=== PATIENT | female | born 1995 ===

== ENCOUNTER 2021-08-13 12:47 | Day surgery (SDC) | payer MEDICAID ==
[~2021-08-13 12:47] MED LIST: Clindamycin Phosphate in D5W 900 MG in Premix Bag 1 BAG IV ONE; Lactated Ringers 1,000 ML IV SCH
--- NOTE | 2021-08-13 13:10 | PCM.PREANE ---
Preanesthetic Assessment - Procedure Proposed Procedure: Dx Laproscopy poss salpingectomy for ectopic - Anesthesia/Transfusion/Family Hx Anesthesia History: No Prior Anesthesia Family History of Anesthesia Reaction: No Transfusion History: No Prior Transfusion(s) - Review of Systems General: No Symptoms Pulmonary: No Symptoms Cardiovascular: No Symptoms Gastrointestinal: No Symptoms Neurological: No Symptoms Other: Reports: None - Physical Assessment NPO Status Date: 08/13/21 NPO Status Time: 08:00 Height: 5 ft 2 in Weight: 52.617 kg ASA Class: 1E Mental Status: Alert & Oriented x3 Airway Class: Mallampati = 2 Dentition: Reports: Normal Dentition Thyro-Mental Finger Breadths: 3 Mouth Opening Finger Breadths: 3 ROM/Head Extension: Full Lungs: Clear to Auscultation, Normal Respiratory Effort Cardiovascular: Regular Rate, Regular Rhythm - Lab Values: Laboratory Last Values WBC 9.19 K/uL (4.0-11.0) 08/13/21 12:34 RBC 3.67 M/uL (4.30-5.90) L 08/13/21 12:34 Hgb 10.4 g/dL (12.0-16.0) L 08/13/21 12:34 Hct 30.9 % (36.0-46.0) L 08/13/21 12:34 MCV 84.2 fL (80.0-98.0) 08/13/21 12:34 MCH 28.3 pg (27.0-32.0) 08/13/21 12:34 MCHC 33.7 g/dL (31.0-37.0) 08/13/21 12:34 RDW Std Deviation 43.4 fl (28.0-62.0) 08/13/21 12:34 RDW Coeff of Arslan 14 % (11.0-15.0) 08/13/21 12:34 Plt Count 319 K/uL (150-400) 08/13/21 12:34 MPV 9.10 fL (7.40-12.00) 08/13/21 12:34 Nucleated RBC % 0.0 /100WBC 08/13/21 12:34 Nucleated RBCs # 0 K/uL 08/13/21 12:34 - Allergies Allergies/Adverse Reactions: Allergies Allergy/AdvReac Type Severity Reaction Status Date / Time ferumoxytol [From Feraheme] Allergy Difficulty Verified 08/13/21 12:08 Breathing Penicillins Allergy Rash Verified 08/13/21 12:08 - Acknowledgements Anesthesia Type Planned: General Anesthesia Pt an Appropriate Candidate for the Planned Anesthesia: Yes Alternatives and Risks of Anesthesia Discussed w Pt/Guardian: Yes Pt/Guardian Understands and Agrees with Anesthesia Plan: Yes PreAnesthesia Questionnaire HEENT History: Reports: None Cardiovascular History: Reports: None Respiratory History: Reports: None Gastrointestinal History: Reports: None Genitourinary History: Reports: None COOK 3 PASTRY History: Reports: Musculoskeletal History: Reports: None Neurological History: Reports: None Psychiatric History: Reports: None Endocrine/Metabolic History: Reports: None Hematologic History: Reports: None Immunologic History: Reports: None Oncologic (Cancer) History: Reports: None Dermatologic History: Reports: None - Infectious Disease History Infectious Disease History: Reports: None - Past Surgical History Head Surgeries/Procedures: Reports: None Female Surgical History: Reports: None - SUBSTANCE USE Tobacco Use Status *Q: Never Tobacco User Recreational Drug Use History: No - HOME MEDS Home Medications: Home Meds . [No Known Home Meds] 08/13/21 [History] - CURRENT (IN HOUSE) MEDS Current Meds: Current Medications Lactated Ringer's (Ringers, Lactated) 1,000 mls @ 100 mls/hr IV ASDIRECTED ZACH Discontinued Medications Clindamycin Phosphate 900 mg/ (Premix) 50 mls @ 100 mls/hr IV ONETIME ONE Stop: 08/13/21 12:18
[2021-08-13] MEDS ORDERED: Bupivacaine 0.25% 10 ML SDV ONE (13:48)
[2021-08-13] MEDS ORDERED: Octyl 2-Cyanoacrylate 1 Tube ONE (13:49)
[2021-08-13] MEDS ORDERED: Ondansetron 4 MG/2 ML SDV IVPUSH PRN (14:03)
[2021-08-13] MEDS ORDERED: Metoclopramide 10 MG/2 ML SDV IVPUSH PRN (14:03)
[2021-08-13] MEDS ORDERED: HYDROmorphone 1 MG/ML Syringe IVPUSH PRN (14:03)
[2021-08-13] MEDS ORDERED: fentaNYL 100 MCG/2 ML SDV IVPUSH PRN (14:03)
[2021-08-13] MEDS ORDERED: Albuterol 0.083% 2.5 MG/3 ML Neb Soln NEB PRN (14:03)
[2021-08-13] MEDS ORDERED: Naloxone 0.4 MG/ML SDV IVPUSH PRN (14:03)
[2021-08-13] MEDS ORDERED: Lidocaine 2% 5 ML SDV ONE (14:12)
[2021-08-13] MEDS ORDERED: Propofol 200 MG/20 ML SDV ONE (14:12)
[2021-08-13] MEDS ORDERED: Rocuronium Bromide 50 MG/5 ML Syringe ONE (14:13)
[2021-08-13] MEDS ORDERED: fentaNYL 250 MCG/5 ML SDV ONE (14:13)
[2021-08-13] MEDS ORDERED: Midazolam 1 MG/ML 2 ML SDV ONE (14:41)
[2021-08-13] MEDS ORDERED: Dexamethasone 4 MG/ML 5 ML MDV ONE (15:39)
[2021-08-13] MEDS ORDERED: Sugammadex Sodium 200 MG/2 ML VIAL ONE (15:39)
[2021-08-13] MEDS ORDERED: Ondansetron 4 MG/2 ML SDV ONE (15:39)
[2021-08-13] MEDS ORDERED: Dexmedetomidine 200 MCG/2 ML SDV ONE (15:39)
[2021-08-13] MEDS ORDERED: Ketorolac 30 MG/ML SDV ONE (15:39)
--- NOTE | 2021-08-13 16:20 | PCM.POSTAN ---
POST ANESTHESIA ASSESSMENT - MENTAL STATUS Mental Status: Alert, Oriented - VITAL SIGNS Vital Signs: Last Vital Signs Temp 36.3 C 08/13/21 16:09 Pulse 55 L 08/13/21 16:14 Resp 13 08/13/21 16:14 BP 87/39 L 08/13/21 16:14 Pulse Ox 99 08/13/21 16:14 - RESPIRATORY Respiratory Status: Respiratory Rate WNL, Airway Patent, O2 Saturation Stable - CARDIOVASCULAR CV Status: Pulse Rate WNL, Blood Pressure Stable - GASTROINTESTINAL GI Status: No Symptoms - POST OP HYDRATION Hydration Status: Adequate & Stable
--- NOTE | 2021-08-13 16:41 | PCM48HPAN ---
Post Anesthesia Note - EVALUATION WITHIN 48HRS OF ANESTHETIC Vital Signs in Normal Range: Yes Patient Participated in Evaluation: Yes Respiratory Function Stable: Yes Airway Patent: Yes Cardiovascular Function Stable: Yes Hydration Status Stable: Yes Pain Control Satisfactory: Yes Nausea and Vomiting Control Satisfactory: Yes Mental Status Recovered: Yes Vital Signs: Last Vital Signs Temp 36.3 C 08/13/21 16:09 Pulse 74 08/13/21 16:34 Resp 11 L 08/13/21 16:34 BP 86/39 L 08/13/21 16:34 Pulse Ox 100 08/13/21 16:34
[2021-08-13 18:34] VITALS: BP 96/55; PULSE 88
--- NOTE | 2021-08-13 22:26 | OR ---
SURGEON: MARYANN WELCH MD DATE OF PROCEDURE: 08/13/2021 PREOPERATIVE DIAGNOSES: 1. Suspected ectopic . 2. Pelvic and perineal pain. 3. Status post elective . POSTOPERATIVE DIAGNOSES: 1. Ectopic , ruptured. 2. Pelvic and perineal pain. 3. Status post elective . PROCEDURE: Operative laparoscopy with evacuation of hemoperitoneum and left salpingectomy. PRIMARY SURGEON: Maryann Welch M.D. MACHINE II CUTTER: Maria Etsher Brandt M.D. ANESTHESIA: General endotracheal. ANESTHESIA PROVIDER: Preston Mckinnon CRNA. IV FLUIDS: 1000 mL of crystalloid. URINE OUTPUT: 200 mL of clear urine at the end of the procedure. ESTIMATED BLOOD LOSS: 100 mL during the procedure. 250 mL hemoperitoneum noted upon entering the abdomen. COMPLICATIONS: None known. PATHOLOGY: Left fallopian tube and ectopic . FINDINGS: Normal-appearing anteverted uterus. 250 mL hemoperitoneum. Normal-appearing right ovary and fallopian tube. Normal-appearing left ovary. Ectopic within the left fallopian tube, ruptured. INDICATION FOR THE PROCEDURE: The patient is a 26-year-old, 3, para 2-0-1-2, who presented to [facility] initially on 08/08/2021 due to significant pelvic pain following elective suction performed on 08/01/2021. Per patient report, the procedure was uncomplicated and she was discharged same day in stable condition. The patient had ultrasound performed at [facility] on 08/08/2021, and there was noted to be fluid and possible clot versus products of conception within the endometrium. There was also a 3 cm adnexal mass, which appeared to be consistent with hemorrhagic cyst. Moderate amount of fluid in the pelvis. Beta- hCG at that time was over 15,000. Results were reviewed with the patient by Dr. Weiss at that time, concerning for retained products of conception. The patient desired to proceed with expectant management at that time. She returned to the clinic on the morning of August 13, 2021 with increasing pelvic pain and vaginal spotting. Her repeat ultrasound was then obtained and the left adnexal mass had increased to approximately 5 cm in size and a large amount of free fluid was noted within the pelvis. Beta HCG today was above 12,000. Findings consistent with possible ectopic . I called the patient's abortive clinic in [place], [place], and spoke to the clinical nurse. She reported that there was an ultrasound performed prior to her procedure and a 6 week 4 day intrauterine had been noted with heart tones. She stated that the adnexa were not fully examined at that time. Findings were reviewed with the patient and recommended urgent diagnostic laparoscopy due to findings of possible ruptured ectopic . Risks of the procedure were reviewed including infection, bleeding, need for blood transfusion, injury to surrounding structures, and need for future procedures, and remote risk of . The patient desired to proceed. Informed consent was obtained. DESCRIPTION OF PROCEDURE: The patient was taken to the operating room where anesthesia was induced. She was prepped and draped in the dorsal lithotomy position. An open-sided Graves speculum was inserted to the vagina and a Hulka tenaculum was inserted gently into the cervix for uterine manipulation. The Graves speculum was then removed and attention then turned to the abdominal portion of the procedure. Local anesthetic was injected infraumbilically and a 5 mm skin incision was made with a scalpel. The Veress needle was then inserted into the abdominal cavity. Opening pressure was 2. The abdominal cavity was then insufflated with CO2 to approximately 3 L. A 5 mm trocar was then inserted into the abdominal cavity and laparoscope was introduced into the abdomen. Findings noted as above. The patient was then placed into Trendelenburg and bilateral lower quadrant ports were placed. The hemoperitoneum was evacuated with suction and irrigation. The left fallopian tube with ectopic was then elevated and the LigaSure device was then used to cauterize and cut the left fallopian tube away from the mesosalpinx to the level of the cornua. The left fallopian tube was then fully transected. The left lower quadrant port was then extended to 10 mm and 10 mm port was then inserted. An endobag was then inserted through the left lower quadrant port site and the ectopic was then easily placed within the Endobag. The 10 mm port and the Endobag were then removed without difficulty. Final inspection was then performed. Hemostasis was assured. All ports were then removed and the abdomen was desufflated. The fascia at the left lower quadrant port site was then reapproximated in a running suture with 0 Vicryl and the skin incisions were then closed with 4-0 Monocryl. Inspection was then performed of the vaginal canal and the Hulka tenaculum was then removed. A small amount of oozing was noted at the tenaculum site, which was treated with silver nitrate. Hemostasis assured. All instruments were then removed from the vagina. Sponge, lap, needle count were correct x2. The patient received prophylactic antibiotics prior to the procedure. She tolerated the procedure well and was taken to PACU stable for recovery. DEVEN / ZANE /[id number] MTDD
--- NOTE | 2021-08-14 15:21 | PCM.OPNOTE ---
- General Post-Op/Procedure Note Date of Surgery/Procedure: 08/13/21 Operative Procedure(s): Operative laparoscopy with left salpingectomy and evacuation of hemoperitoneum Findings: Normal appearing anteverted uterus. 250cc hemoperitoneum. Normal appearing right ovary and fallopian tube. Normal appearing left ovary. Ectopic within the left fallopian tube, ruptured. Pre Op Diagnosis: 1. Suspected ectopic . 2. Pelvic and perineal pain. 3. s/p elective Post-Op Diagnosis: 1. Ectopic , ruptured. 2. Pelvic and perineal pain. 3. s/p elective Anesthesia Technique: General ET Tube Primary Surgeon: Maryann Ramirez Anesthesia Provider: Preston Mckinnon Religion Professor: Maria Esther Brandt Pathology: left fallopian tube and ectopic Fluid Replacement, Intraop: 1,000 Output, Urine Amount: 200 EBL in mLs: 100 (250cc hemoperitoneum upon entering abdomen) Complications: None known Condition: Stable Free Text/Narrative:: Dictation #[id number]
== END 2021-08-13 18:20 | disposition home or self-care (01) ==
LOC: MW.SDS 12:47
PROVIDERS: ATTEND Obstetrics & Gynecology
DX: O00.102 Left tubal pregnancy without intrauterine pregnancy (principal); Z79.899 Other long term (current) drug therapy; Z88.0 Allergy status to penicillin
CPT/HCPCS: 00840; 36415; 84702; 85014; 85018; 85027; A9270-GY; J0131; J0330; J1100; J1885; J2250; J2370; J2405; J2704; J3010; J3490; J7030